=== PATIENT | female | born 1975 | race American Indian/Alaskan Native ===

== ENCOUNTER 2018-11-02 09:52 | Emergency (ER) | payer OTHER ==
[2018-11-02 10:19] VITALS: BP 127/89
[2018-11-02] MEDS ORDERED: MORPHINE IV ONE (10:53)
[2018-11-02] MEDS ORDERED: ZOFRAN IV ONE (10:53)
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
== END 2018-11-02 15:05 | disposition home or self-care (01) ==
LOC: ED 09:52
DX: S16.1XXA Strain of muscle, fascia and tendon at neck level, initial encounter (principal); S09.90XA Unspecified injury of head, initial encounter; R07.89 Other chest pain; Z79.899 Other long term (current) drug therapy; Z91.018 Allergy to other foods; V49.49XA Driver injured in collision with other motor vehicles in traffic accident, initial encounter; Y93.89 Activity, other specified; Y92.410 Unspecified street and highway as the place of occurrence of the external cause; Y99.8 Other external cause status
CPT/HCPCS: 36415; 70450; 71260; 72125; 84703; 93005; 93010; 96374; 96375; 99284; J2270; J2405; Q9967